=== PATIENT | female | born 1985 | race Caucasian/White ===

== ENCOUNTER → 2017-04-12 | Emergency (ER) | payer OTHER ==
[~2017-04-12] VITALS: Ht 172.7 cm; Wt 105.2 kg
[~2017-04-12] MED LIST: ADVAIR 2501 DISK W/1 IH; AMOX1TAB12 PO; ANTIVERT25 M1 PO; INTESTINEX1 CA1 PO; LEVAQUIN750 MG PO; LEVSIN/SL0.125 MG SL; PROVENTIL HFA6.7 GM IH; PROVENTIL3 ML/2.5 M IH; SEPTRA DS TABLE1 TAB PO; SINGULAIR 10MG10 MG PO; ZANTAC150 MG PO; ZYNCOF 20-400120 ML PO
== END | disposition home or self-care (01) ==
LOC: ER 13:55
DX: J45.901 Unspecified asthma with (acute) exacerbation (principal)

== ENCOUNTER 2017-07-14 18:58 | Emergency (ER) | payer OTHER ==
[~2017-07-14] VITALS: Ht 172.7 cm; Wt 89.8 kg
== END 2017-07-15 00:33 | disposition home or self-care (01) ==
LOC: ER 18:58
DX: R10.32 Left lower quadrant pain (principal)

== ENCOUNTER 2022-03-12 16:09 | Emergency (ER) | payer OTHER ==
[~2022-03-12] VITALS: Ht 170.2 cm; Wt 119.7 kg
[2022-03-12] MEDS ORDERED: GLUMETZA500 MG (16:52)
[2022-03-12] MEDS ORDERED: ZESTRIL10 M1 (16:52)
[2022-03-12] MEDS ORDERED: BENZONATATE200 M1 PO (20:28)
[2022-03-12] MEDS ORDERED: ZITHROMAX500 MG PO (20:28)
[2022-03-12] MEDS ORDERED: TUSNEL LIQUID178 ML PO (20:28)
[2022-03-12] MEDS ORDERED: XOPENEX0.63 MG/3 IH (20:29)
== END 2022-03-12 20:38 | disposition home or self-care (01) ==
LOC: ER 16:09
DX: J45.909 Unspecified asthma, uncomplicated (principal); Z20.822 Contact with and (suspected) exposure to COVID-19; E11.9 Type 2 diabetes mellitus without complications; Z79.84 Long term (current) use of oral hypoglycemic drugs; I10 Essential (primary) hypertension; Z88.8 Allergy status to other drugs, medicaments and biological substances

== ENCOUNTER 2022-10-11 18:05 | Emergency (ER) | payer OTHER ==
[~2022-10-11] VITALS: Ht 170.2 cm; Wt 95.3 kg
[~2022-10-11 18:05] MED LIST changes: +BENZONATATE200 M1 PO; +GLUMETZA500 MG; +TUSNEL LIQUID178 ML PO; +XOPENEX0.63 MG/3 IH; +ZESTRIL10 M1; +ZITHROMAX500 MG PO
== END 2022-10-11 23:48 | disposition home or self-care (01) ==
LOC: ER 18:05
DX: H10.89 Other conjunctivitis (principal); J45.901 Unspecified asthma with (acute) exacerbation; Z20.822 Contact with and (suspected) exposure to COVID-19; Z91.013 Allergy to seafood; G40.909 Epilepsy, unspecified, not intractable, without status epilepticus

== ENCOUNTER 2022-11-24 13:17 | Emergency (ER) | payer OTHER ==
[~2022-11-24] VITALS: Ht 170.2 cm; Wt 98.9 kg
== END 2022-11-24 18:50 | disposition home or self-care (01) ==
LOC: ER 13:17
DX: S93.492A Sprain of other ligament of left ankle, initial encounter (principal); X50.1XXA Overexertion from prolonged static or awkward postures, initial encounter; Y93.9 Activity, unspecified; Y92.009 Unspecified place in unspecified non-institutional (private) residence as the place of occurrence of the external cause; Y99.9 Unspecified external cause status

== ENCOUNTER 2022-12-25 15:57 | Emergency (ER) | payer OTHER ==
[~2022-12-25] VITALS: Ht 170.2 cm; Wt 105.7 kg
[2022-12-25 18:04] LABS: HEMATOCRIT 39.8 % (36.0-45.00); HEMOGLOBIN 13.5 g/dL (12.0-15.00); MEAN CELL VOLUME 84.9 fL (80.00-100.00); MEAN CORPUSCULAR HEMOGLOBIN 28.7 pg (27.00-32.0); MEAN CORPUSCULAR HGB CONC 33.8 g/dl (32.0-36.0); PLATELET COUNT 312 K/uL (150-450); RED BLOOD COUNT 4.68 M/uL (4.00-6.00); RED CELL DISTRIBUTION WIDTH 13.5 % (11.5-14.5)
[2022-12-25 18:30] LABS: ALBUMIN 3.2 gm/dL (3.4-5.0); BILIRUBIN TOTAL 0.18 mg/dL (0.3-1.2); CALCIUM 9.5 mg/dL (8.5-10.1); CREATININE SERUM 0.72 mg/dL (0.55-1.02); GFR 91.65; GLOBULINA 4.4 G/DL (2.4-3.5); POTASSIUM 3.86 mEq/L (3.5-5.1); TOTAL PROTEIN 7.6 gm/dL (6.4-8.2)
[2022-12-25 19:05] LABS: ABG PH 7.472 (7.35-7.45); ABG PO2 79.9 mmHg (80-100); ABG pCO2 36.9 mmHg (35-45); BASE EXCESS 2.9 mmol/l; BICARBONATE 26.4 mmol/l (23-25); SaO2 96.6 %
[2022-12-25] MEDS ORDERED: TUSNEL LIQUID178 ML PO (20:40)
[2022-12-25] MEDS ORDERED: ZITHROMAX500 MG PO (20:40)
[2022-12-25] MEDS ORDERED: IPRAT-ALBUT 0.5-3 ML IH (20:40)
[2022-12-25] MEDS ORDERED: MEDROLPACK PO (20:40)
== END 2022-12-25 21:35 | disposition home or self-care (01) ==
LOC: ER 15:57
PROVIDERS: General Practice
DX: R06.02 Shortness of breath (principal); J45.901 Unspecified asthma with (acute) exacerbation; Z20.822 Contact with and (suspected) exposure to COVID-19; Z88.8 Allergy status to other drugs, medicaments and biological substances; Z91.018 Allergy to other foods

== ENCOUNTER 2023-06-24 18:28 | Emergency (ER) | payer OTHER ==
[~2023-06-24] VITALS: Ht 170.2 cm; Wt 114.3 kg
[~2023-06-24 18:28] MED LIST changes: +IPRAT-ALBUT 0.5-3 ML IH; +MEDROLPACK PO
[2023-06-24] MEDS ORDERED: KETOROLAC TROMETHAMINE 60 MG VIAL IM STA (19:41)
[2023-06-24] MEDS ORDERED: ORPHENADRINE CITRATE 30 MG/ML AMPUL IM STA (19:42)
== END 2023-06-24 20:05 | disposition home or self-care (01) ==
LOC: ER 18:28
DX: M62.830 Muscle spasm of back (principal); R07.89 Other chest pain; Z88.8 Allergy status to other drugs, medicaments and biological substances; E11.9 Type 2 diabetes mellitus without complications; Z79.84 Long term (current) use of oral hypoglycemic drugs

== ENCOUNTER 2023-07-04 14:33 | Emergency (ER) | payer OTHER ==
[~2023-07-04] VITALS: Ht 170.2 cm; Wt 124.7 kg
[2023-07-04] MEDS ORDERED: ZESTRIL10 M1 PO (14:38)
[2023-07-04 17:15] LABS: HEMATOCRIT 41.7 % (36.0-45.00); HEMOGLOBIN 14.3 g/dL (12.0-15.00); MEAN CELL VOLUME 85.5 fL (80.00-100.00); MEAN CORPUSCULAR HEMOGLOBIN 29.4 pg (27.00-32.0); MEAN CORPUSCULAR HGB CONC 34.4 g/dl (32.0-36.0); PLATELET COUNT 307 K/uL (150-450); RED BLOOD COUNT 4.88 M/uL (4.00-6.00)
== END 2023-07-04 18:25 | disposition home or self-care (01) ==
LOC: ER 14:34
PROVIDERS: Emergency Medicine
DX: U07.1 COVID-19 (principal); E11.9 Type 2 diabetes mellitus without complications; Z79.84 Long term (current) use of oral hypoglycemic drugs; Z88.8 Allergy status to other drugs, medicaments and biological substances; Z87.09 Personal history of other diseases of the respiratory system

== ENCOUNTER 2024-05-25 12:52 | Inpatient (IN) | payer OTHER ==
[~2024-05-25] VITALS: Ht 165.1 cm; Wt 91.6 kg
[~2024-05-25 12:52] MED LIST changes: +ZESTRIL10 M1 PO
[2024-05-25] MEDS ORDERED: 0.9 % SODIUM CHLORIDE 500 ML IV ONE (15:00)
[2024-05-25] MEDS ORDERED: METHYLPREDNISOLONE SOD SUCC 125 MG VIAL IV ONE (15:00)
[2024-05-25] MEDS ORDERED: LEVALBUTEROL HCL 1.25 MG/3 ML SOLUTION IH SCH ×2 (15:00→18:59)
[2024-05-25] MEDS ORDERED: IPRATROPIUM BROMIDE 0.5 MG/2.5 ML AMPUL.NEB IH SCH ×2 (15:00→21:00)
[2024-05-25] MEDS ORDERED: INSULIN REGULAR, HUMAN 1,000 UNIT/10 ML UNITS IV NR (15:00)
[2024-05-25] MEDS ORDERED: METHYLPREDNISOLONE SOD SUCC 125 MG VIAL ONE (15:02)
[2024-05-25] MEDS ORDERED: MAGNESIUM SULFATE IN WATER 50 ML IV NR (15:15)
[2024-05-25 15:32] LABS: HEMATOCRIT 42.3 % (36.0-45.00); HEMOGLOBIN 13.8 g/dL (12.0-15.00); MEAN CELL VOLUME 85.5 fL (80.00-100.00); MEAN CORPUSCULAR HGB CONC 32.7 g/dl (32.0-36.0); PLATELET COUNT 301 K/uL (150-450); RED BLOOD COUNT 4.95 M/uL (4.00-6.00); RED CELL DISTRIBUTION WIDTH 13.6 % (11.5-14.5)
[2024-05-25 15:58] LABS: ALBUMIN 3.2 gm/dL (3.4-5.0); BILIRUBIN TOTAL 0.29 mg/dL (0.3-1.2); CALCIUM 9.5 mg/dL (8.5-10.1); CREATININE SERUM 0.62 mg/dL (0.55-1.02); GFR 108.31; GLOBULINA 4.7 G/DL (2.4-3.5); POTASSIUM 3.91 mEq/L (3.5-5.1); TOTAL PROTEIN 7.9 gm/dL (6.4-8.2)
[2024-05-25] MEDS ORDERED: IPRATROPIUM BROMIDE 0.5 MG/2.5 ML AMPUL.NEB IH ONE ×2 (16:48→22:03)
[2024-05-25] MEDS ORDERED: LEVALBUTEROL HCL 1.25 MG/3 ML SOLUTION IH ONE ×2 (16:48→22:03)
[2024-05-25 16:57] LABS: ABG PH 7.459 (7.35-7.45); ABG pCO2 37.6 mmHg (35-45); BASE EXCESS 2.4 mmol/l; BICARBONATE 26.1 mmol/l (23-25); SaO2 96.1 %; Tco2 27.3 mmol/l
[2024-05-25 18:29] LABS: allen test SATISFACTORY; o2 21 %; puncture site RADIAL LEFT
[2024-05-25] MEDS ORDERED: 0.9 % SODIUM CHLORIDE 1,000 ML IV SCH (20:15)
[2024-05-25] MEDS ORDERED: levoFLOXacin IN DEXTROSE 5 % 150 ML IV SCH (20:19)
[2024-05-25] MEDS ORDERED: MONTELUKAST SODIUM 10 MG TABLET PO SCH (20:19)
[2024-05-25] MEDS ORDERED: INSULIN LISPRO 1,000 UNIT/10 ML UNITS SUBCUTANEO PRN (20:30)
[2024-05-25] MEDS ORDERED: ACETAMINOPHEN 500 MG GEL..CAP PO PRN (20:30)
[2024-05-25] MEDS ORDERED: DEXTROSE 50 % IN WATER 0.5 G/ML DISP.SYRIN IV PRN (20:30)
[2024-05-25] MEDS ORDERED: GUAIFEN/DEXTROMETHORPHAN/PE 10 ML BLIST.PACK PO SCH (21:00)
[2024-05-25] MEDS ORDERED: METHYLPREDNISOLONE SOD SUCC 40 MG VIAL IV SCH (21:00)
[2024-05-25] MEDS ORDERED: METHYLPREDNISOLONE SOD SUCC 40 MG VIAL ONE (22:04)
[2024-05-25] MEDS ORDERED: GUAIFEN/DEXTROMETHORPHAN/PE 10 ML BLIST.PACK PO ONE (22:04)
[2024-05-25] MEDS ORDERED: MONTELUKAST SODIUM 10 MG TABLET PO ONE (22:04)
[2024-05-25 23:56] LABS: INR 1.01; PARTIAL THROMBOPLASTIN TIME 29.6 SECONDS (22.0-34.0)
[2024-05-26 00:15] VITALS: BP 123/64; O2SAT 97
[2024-05-26 00:26] LABS: URINE APPEARANCE Clear; URINE BILIRRUBIN Negative (NEGATIVE); URINE BLOOD Negative; URINE COLOR Yellow; URINE LEUKOCYTE Negative; URINE NITRATE Negative; URINE PROTEIN Negative (NEGATIVE); URINE UROBILINOGEN 0.2 E.U./dl
[2024-05-26] MEDS ORDERED: GUAIFEN/DEXTROMETHORPHAN/PE 10 ML BLIST.PACK PO ONE ×2 (00:26→05:19)
[2024-05-26 00:31] LABS: URINE BACTERIA 821.2 uL (0.0-1933); URINE EPITHELIAL CELLS 32.8 uL (0.0-38.8)
[2024-05-26 00:49] LABS: URINE CAST 0.14 uL (0.0-1.40); URINE GLUCOSE >=1000 MG/DL (NEGATIVE); URINE KETONE 80 (NEGATIVE); URINE RBC 1.7 uL (0.0-20.8)
[2024-05-26] MEDS ORDERED: LEVALBUTEROL HCL 0.63 MG/3 ML SOLUTION IH ONE ×2 (02:39→04:18)
[2024-05-26] MEDS ORDERED: IPRATROPIUM BROMIDE 0.5 MG/2.5 ML AMPUL.NEB IH ONE ×3 (02:39→18:22)
[2024-05-26] MEDS ORDERED: INSULIN REGULAR, HUMAN 1,000 UNIT/10 ML UNITS ONE (03:18)
[2024-05-26] MEDS ORDERED: INSULIN NPH HUMAN ISOPHANE 1,000 UNITS/10 ML UNITS SUBCUTANEO ONE (03:21)
[2024-05-26] MEDS ORDERED: INSULIN NPH HUMAN ISOPHANE 1,000 UNITS/10 ML UNITS SUBCUTANEO STA (03:31)
[2024-05-26] MEDS ORDERED: INSULIN REGULAR, HUMAN 1,000 UNIT/10 ML UNITS IV STA ×2 (03:31→05:53)
[2024-05-26] MEDS ORDERED: METHYLPREDNISOLONE SOD SUCC 40 MG VIAL ONE (07:46)
[2024-05-26] MEDS ORDERED: ENOXAPARIN SODIUM 40 MG/0.4 ML SYRINGE SUBCUTANEO ONE (07:46)
[2024-05-26] MEDS ORDERED: FAMOTIDINE/PF 20 MG/2 ML VIAL ONE (07:46)
[2024-05-26 08:27] VITALS: BP 133/91; O2SAT 96
[2024-05-26] MEDS ORDERED: INSULIN LISPRO 1,000 UNIT/10 ML UNITS SUBCUTANEO ONE ×3 (08:31→18:03)
[2024-05-26] MEDS ORDERED: LISINOPRIL 10 MG TABLET PO SCH (09:00)
[2024-05-26] MEDS ORDERED: ENOXAPARIN SODIUM 40 MG/0.4 ML SYRINGE SUBCUTANEO SCH (09:00)
[2024-05-26] MEDS ORDERED: FAMOTIDINE/PF 20 MG in 0.9 % SODIUM CHLORIDE 8 ML IV PUSH SCH (09:00)
[2024-05-26] MEDS ORDERED: SODIUM CHLORIDE FOR INHALATION 1 VIAL.NEB IH ONE (10:00)
[2024-05-26] MEDS ORDERED: LEVALBUTEROL HCL 1.25 MG/3 ML SOLUTION IH SCH (14:00)
[2024-05-26 15:02] LABS: ALBUMIN 3.1 gm/dL (3.4-5.0); BILIRUBIN TOTAL 0.28 mg/dL (0.3-1.2); CALCIUM 9.1 mg/dL (8.5-10.1); CREATININE SERUM 0.69 mg/dL (0.55-1.02); GFR 95.73; POTASSIUM 3.93 mEq/L (3.5-5.1); TOTAL PROTEIN 8.1 gm/dL (6.4-8.2)
[2024-05-26] MEDS ORDERED: INSULIN GLARGINE,HUM.REC.ANLOG 1,000 UNITS/10 ML UNITS SUBCUTANEO SCH (17:00)
[2024-05-26] MEDS ORDERED: INSULIN LISPRO 1,000 UNIT/10 ML UNITS SUBCUTANEO SCH (17:00)
[2024-05-26] MEDS ORDERED: INSULIN GLARGINE,HUM.REC.ANLOG 1,000 UNITS/10 ML UNITS SUBCUTANEO ONE (18:03)
[2024-05-26] MEDS ORDERED: LEVALBUTEROL HCL 1.25 MG/3 ML SOLUTION IH ONE (18:21)
[2024-05-26 20:50] VITALS: BP 114/80; O2SAT 96
[2024-05-27 02:16] VITALS: BP 97/55; O2SAT 99
[2024-05-27 17:19] VITALS: BP 160/83
[2024-05-27] MEDS ORDERED: INSULIN NPH HUMAN ISOPHANE 1,000 UNITS/10 ML UNITS SUBCUTANEO SCH (21:00)
[2024-05-28 01:41] VITALS: BP 139/90; O2SAT 98
[2024-05-28] MEDS ORDERED: AZITHROMYCIN 500 MG VIAL IV ONE (07:57)
[2024-05-28] MEDS ORDERED: INSULIN GLARGINE,HUM.REC.ANLOG 1,000 UNITS/10 ML UNITS SUBCUTANEO SCH ×2 (09:00→21:00)
[2024-05-28] MEDS ORDERED: AZITHROMYCIN 500 MG VIAL IV SCH (09:00)
[2024-05-28] MEDS ORDERED: CEFTRIAXONE SODIUM 2,000 MG in 0.9 % SODIUM CHLORIDE 100 ML IV SCH (09:00)
[2024-05-28 09:24] VITALS: BP 138/63; O2SAT 96
[2024-05-28 18:00] VITALS: BP 132/85; O2SAT 97
[2024-05-28] MEDS ORDERED: INSULIN GLARGINE,HUM.REC.ANLOG 1,000 UNITS/10 ML UNITS SUBCUTANEO ONE (20:05)
[2024-05-29 02:39] VITALS: BP 132/79; O2SAT 98
[2024-05-29 02:40] VITALS: BP 113/59; BP 132/79; O2SAT 98
[2024-05-29] MEDS ORDERED: INSULIN LISPRO 1,000 UNIT/10 ML UNITS SUBCUTANEO SCH (08:00)
[2024-05-29] MEDS ORDERED: AZITHROMYCIN 500 MG VIAL IV ONE (08:25)
[2024-05-29 11:52] VITALS: BP 144/77
[2024-05-29 18:59] VITALS: BP 128/76; O2SAT 95
[2024-05-29] MEDS ORDERED: INSULIN GLARGINE,HUM.REC.ANLOG 1,000 UNITS/10 ML UNITS SUBCUTANEO SCH (21:00)
[2024-05-30 01:08] VITALS: BP 139/90; O2SAT 97
[2024-05-30] MEDS ORDERED: AZITHROMYCIN 500 MG VIAL IV ONE (08:19)
[2024-05-30 09:18] LABS: CALCIUM 9.1 mg/dL (8.5-10.1); CREATININE SERUM 0.61 mg/dL (0.55-1.02); GFR 110.36; POTASSIUM 4.23 mEq/L (3.5-5.1)
[2024-05-30 09:26] VITALS: BP 138/73
[2024-05-30] MEDS ORDERED: CLOTRIMAZOLE 45 GM TUBE VAG SCH (13:00)
[2024-05-30 16:15] VITALS: BP 131/82
[2024-05-30] MEDS ORDERED: FAMOTIDINE/PF 20 MG in 0.9 % SODIUM CHLORIDE 8 ML IV PUSH SCH (17:00)
[2024-05-30] MEDS ORDERED: FAMOtidine 20 MG TABLET PO SCH (21:00)
[2024-05-30] MEDS ORDERED: INSULIN GLARGINE,HUM.REC.ANLOG 1,000 UNITS/10 ML UNITS SUBCUTANEO SCH (21:00)
[2024-05-31 02:38] VITALS: BP 149/89
[2024-05-31] MEDS ORDERED: METHYLPREDNISOLONE SOD SUCC 40 MG VIAL IV SCH (05:00)
[2024-05-31 07:30] LABS: CALCIUM 9.1 mg/dL (8.5-10.1); CREATININE SERUM 0.58 mg/dL (0.55-1.02); GFR 116.98; POTASSIUM 4.36 mEq/L (3.5-5.1); URIC ACID 4.1 mg/dL (2.5-7.5)
[2024-05-31 07:49] LABS: HEMATOCRIT 43.1 % (36.0-45.00); MEAN CELL VOLUME 86.3 fL (80.00-100.00); MEAN CORPUSCULAR HGB CONC 32.5 g/dl (32.0-36.0); PLATELET COUNT 372 K/uL (150-450); RED CELL DISTRIBUTION WIDTH 13.5 % (11.5-14.5)
[2024-05-31 08:00] VITALS: BP 117/72
[2024-05-31] MEDS ORDERED: AZITHROMYCIN 500 MG VIAL IV ONE (08:25)
[2024-05-31] MEDS ORDERED: CLOTRIMAZOLE 45 GM TUBE VAG SCH (09:00)
[2024-05-31] MEDS ORDERED: LEVALBUTEROL HCL 1.25 MG/3 ML SOLUTION IH SCH (09:00)
[2024-05-31 16:13] VITALS: BP 125/83
[2024-06-01 02:10] VITALS: BP 114/63
[2024-06-01] MEDS ORDERED: AZITHROMYCIN 500 MG VIAL IV ONE (09:00)
[2024-06-01 09:05] VITALS: BP 148/95
== END 2024-06-01 13:47 | disposition home or self-care (01) | DRG 203 ==
LOC: ER 12:54 → SEC-K 20:46 → MEDJ 05-26 17:29
PROVIDERS: General Practice; Internal Medicine Endocrinology, Diabetes & Metabolism; ADMIT Student in an Organized Health Care Education/Training Program; ATTEND Student in an Organized Health Care Education/Training Program
PROC: 3E0F7GC Introduction of Other Therapeutic Substance into Respiratory Tract, Via Natural or Artificial Opening (ICD-10-PCS; principal; 2024-05-25)
PROC: B246ZZZ Ultrasonography of Right and Left Heart (ICD-10-PCS; 2024-05-26)
PROC: B44HZZZ Ultrasonography of Bilateral Lower Extremity Arteries (ICD-10-PCS; 2024-05-30)
DX: J45.41 Moderate persistent asthma with (acute) exacerbation (principal); J20.9 Acute bronchitis, unspecified; E11.65 Type 2 diabetes mellitus with hyperglycemia; N76.0 Acute vaginitis; R10.13 Epigastric pain; R00.2 Palpitations; R22.42 Localized swelling, mass and lump, left lower limb; I10 Essential (primary) hypertension